=== PATIENT | female | born 1950 | race Caucasian/White ===

== ENCOUNTER → 2016-12-18 | Outpatient (CLI) | payer BC ==
[~2016-12-18] MED LIST: ACET-1256 PO; ASPI81TA28 PO; CALC12502 PO; CLON0.5T3 PO; FEXO1TAB58 PO; FLUO20CA35 PO; IBUP-1050 PO; MULT1TAB32 PO; OMEP-105 PO; SALI0.6517 NAE
[2016-12-18 15:24] LABS: BLOOD UREA NITROGEN 15 mg/dl (7-18); BUN/CREATININE RATIO 16.4 (10-20); CALCIUM 9.3 mg/dl (8.5-10.1); CARBON DIOXIDE 28 mmol/L (21-32); CHLORIDE 105 mmol/L (98-107); CHOLESTEROL 199 mg/dl (0-200); CREATININE 0.92 mg/dl (0.60-1.20); GLUCOSE 92 mg/dl (70-99); POTASSIUM 3.6 mmol/L (3.5-5.1); SODIUM 143 mmol/L (136-145); TRIGLYCERIDES 166 mg/dl (0-150); VERY LOW DENSITY LIPOPROT CALC 33 mg/dl
[2016-12-18 15:27] LABS: CHOLESTEROL/HDL RATIO 4.1; HDL CHOLESTEROL 49 mg/dl
== END | disposition home or self-care (01) ==
LOC: C.LABSPEC 14:43
PROVIDERS: ATTEND Internal Medicine
DX: E78.5 Hyperlipidemia, unspecified (principal); I10 Essential (primary) hypertension

== ENCOUNTER → 2017-05-26 | Outpatient (CLI) | payer BC ==
--- NOTE | 2017-05-27 16:00 | MAMMOGRAPHY REPORT ---
BILATERAL DIGITAL SCREENING MAMMOGRAM WITH CAD: 05/26/2017 CLINICAL HISTORY: Routine screening. Patient has no complaints. TECHNIQUE: Bilateral CC and MLO views were obtained. Current study was also evaluated with a Compute r Aided Detection (CAD) system. COMPARISON: Comparison is made to exams dated: 05/23/2016 mammogram, 05/21/2015 mammogram, 05/19/2014 m ammogram, 05/18/2013 mammogram, 05/17/2012 mammogram, and 05/14/2011 mammogram - [facility] enter. BREAST COMPOSITION: There are scattered areas of fibroglandular density in both breasts. Mild invol utional changes comparing to more remote prior mammograms. FINDINGS: No developing mass, architectural distortion or cluster of suspicious microcalcifications is seen in either breast. IMPRESSION: ACR BI-RADS CATEGORY 2: BENIGN There is no mammographic evidence of malignancy. A 1 year screening mammogram is recommended. The pa tient will receive written notification of the results. Approximately 10% of breast cancers are not detected with mammography. A negative mammographic report should not delay biopsy if a clinically suggestive mass is present. Zeina Tenorio M.D. ay/:05/26/2017 16:01:55 Test Equipment Mechanic: Norah TAN(R)(Pamela)(BD), [facility] letter sent: Normal 1/2 BI-RADS Code: ACR BI-RADS Category 2: Benign
== END | disposition home or self-care (01) ==
LOC: C.MAMM 12:41
PROVIDERS: ATTEND Internal Medicine
DX: Z12.31 Encounter for screening mammogram for malignant neoplasm of breast (principal)

== ENCOUNTER → 2017-06-23 | Outpatient (CLI) | payer BC | END | disposition home or self-care (01) | LOC: C.PAPS 13:23 | PROVIDERS: ATTEND Internal Medicine | DX: Z12.4 Encounter for screening for malignant neoplasm of cervix (principal) ==

== ENCOUNTER → 2017-06-23 | Outpatient (CLI) | payer BC ==
[2017-06-23 13:16] LABS: BASO % 0.4 %; BASO ABS # 0.02 K/uL (0-0.2); COMPLETE YES; EOS % 2.2 %; LYMPH % 32.5 %; LYMPH ABS # 1.45 K/uL (1.2-3.4); MEAN CELL VOLUME 90.7 fL (80-100); MEAN CORPUSCULAR HEMOGLOBIN 30.4 pg (25-34); MEAN CORPUSCULAR HGB CONC 33.5 g/dl (32-36); MEAN PLATELET VOLUME 9.4 fL (7.4-10.4); MONO % 7.6 %; NEUT % 57.3 %; PLATELET COUNT 316 K/uL (130-400); RED BLOOD COUNT 4.41 M/uL (4.2-5.4); WHITE BLOOD COUNT 4.46 K/uL (4.8-10.8)
[2017-06-23 13:33] LABS: ALT/SGPT 33 U/L (12-78); AST/SGOT 21 U/L (15-37); BLOOD UREA NITROGEN 17 mg/dl (7-18); BUN/CREATININE RATIO 17.8 (10-20); CALCIUM 9.6 mg/dl (8.5-10.1); CARBON DIOXIDE 29 mmol/L (21-32); CHLORIDE 104 mmol/L (98-107); CHOLESTEROL 206 mg/dl (0-200); CREATININE 0.93 mg/dl (0.60-1.20); GLUCOSE 86 mg/dl (70-99); SODIUM 140 mmol/L (136-145)
[2017-06-23 13:44] LABS: ALKALINE PHOSPHATASE 86 U/L (45-117); CHOLESTEROL/HDL RATIO 4.2; HDL CHOLESTEROL 49 mg/dl; TRIGLYCERIDES 163 mg/dl (0-150); VERY LOW DENSITY LIPOPROT CALC 33 mg/dl
== END | disposition home or self-care (01) ==
LOC: C.LABSPEC 12:08
PROVIDERS: ATTEND Internal Medicine
DX: Z12.4 Encounter for screening for malignant neoplasm of cervix (principal); Z11.59 Encounter for screening for other viral diseases

== ENCOUNTER → 2017-06-26 | Outpatient (CLI) | payer BC | END | disposition home or self-care (01) | LOC: C.LABSPEC 14:24 | PROVIDERS: ATTEND Internal Medicine | DX: Z12.11 Encounter for screening for malignant neoplasm of colon (principal) ==

== ENCOUNTER → 2017-09-23 | Outpatient (CLI) | payer BC ==
--- NOTE | 2017-09-23 11:31 | DIAGNOSTIC IMAGING REPORT ---
RIGHT KNEE 2 VIEWS CLINICAL HISTORY: Right knee pain COMPARISON: 11/28/2015 DISCUSSION: No acute fractures or dislocations are visualized. There are mild osteoarthritic changes. There are no erosive or destructive changes. IMPRESSION: Mild degenerative change. No fractures identified. Electronically signed by: Mark Barrera M.D. 09/23/2017 11:30 AM Dictated Date/Time: 09/23/2017 11:29 AM
--- NOTE | 2017-09-23 11:33 | DIAGNOSTIC IMAGING REPORT ---
L KNEE 1 OR 2 VIEWS ROUTINE CLINICAL HISTORY: Bilateral knee pain. COMPARISON: Left knee radiographs October 14, 2013. FINDINGS: Alignment of the left knee is anatomic. No fracture or suspicious osseous lesion is present. There is a suspected small left knee joint effusion. There is mild osteophytosis within the medial compartment. IMPRESSION: 1. No acute fracture. 2. Mild osteoarthritis within the medial compartment of the left knee. 2. Small left knee joint effusion. Electronically signed by: Michael Slater M.D. 09/23/2017 11:31 AM Dictated Date/Time: 09/23/2017 11:30 AM
== END | disposition home or self-care (01) ==
LOC: C.RAD 10:38
PROVIDERS: ATTEND Internal Medicine
DX: M25.562 Pain in left knee (principal); M25.561 Pain in right knee; M25.462 Effusion, left knee

== ENCOUNTER → 2017-12-22 | Outpatient (CLI) | payer BC ==
[2017-12-22 14:18] LABS: BLOOD UREA NITROGEN 18 mg/dl (7-18); CREATININE 0.97 mg/dl (0.60-1.20); GLUCOSE 88 mg/dl (70-99)
[2017-12-22 14:19] LABS: CALCIUM 9.2 mg/dl (8.5-10.1); CARBON DIOXIDE 28 mmol/L (21-32); CHOLESTEROL 202 mg/dl (0-200); POTASSIUM 3.9 mmol/L (3.5-5.1); SODIUM 139 mmol/L (136-145)
[2017-12-22 14:24] LABS: LDL CHOLESTEROL (DIRECT) 136 mg/dl
== END | disposition home or self-care (01) ==
LOC: C.LABSPEC 12:34
PROVIDERS: ATTEND Internal Medicine
DX: I10 Essential (primary) hypertension (principal); E78.5 Hyperlipidemia, unspecified

== ENCOUNTER → 2018-05-27 | Outpatient (CLI) | payer BC ==
[~2018-05-27] MED LIST changes: -CLON0.5T3 PO; +KLN/5 PO; -OMEP-105 PO; +OMEP-107 PO
--- NOTE | 2018-05-28 14:30 | MAMMOGRAPHY REPORT ---
BILATERAL DIGITAL SCREENING MAMMOGRAM TOMOSYNTHESIS WITH CAD: 05/27/2018 CLINICAL HISTORY: Routine screening. TECHNIQUE: Breast tomosynthesis in addition to standard 2D mammography was performed. Current study w as also evaluated with a Computer Aided Detection (CAD) system. COMPARISON: Comparison is made to exams dated: 05/26/2017 mammogram, 05/23/2016 mammogram, 05/21/2015 m ammogram, 05/19/2014 mammogram, 05/18/2013 mammogram, and 05/17/2012 mammogram - [facility] enter. BREAST COMPOSITION: There are scattered areas of fibroglandular density in both breasts. FINDINGS: No suspicious masses, calcifications, or areas of architectural distortion are noted in either breast . There has been no significant interval change compared to prior exams. IMPRESSION: ACR BI-RADS CATEGORY 1: NEGATIVE There is no mammographic evidence of malignancy. A 1 year screening mammogram is recommended.( 019) The patient will receive written notification of the results. Some breast cancers are not detected with mammography. A negative mammographic report should not nisha y biopsy if a clinically suggestive mass is present. Bita Jones M.D. ah/:05/27/2018 15:14:48 Playback Operator: RT Aleyda(R)(M), [facility] letter sent: Normal 1/2 BI-RADS Code: ACR BI-RADS Category 1: Negative
== END | disposition home or self-care (01) ==
LOC: C.MAMM 11:04
PROVIDERS: ATTEND Internal Medicine
DX: Z12.31 Encounter for screening mammogram for malignant neoplasm of breast (principal)

== ENCOUNTER 2023-08-31 05:02 | Observation (INO) ==
--- NOTE | 2023-08-20 12:34 | PAT Medication Instructions ---
Medication Instructions Date of Service August 20, 2023 Home Medications Medication Instructions Recorded amlodipine 5 mg tablet 5 mg PO QAM #90 tabs 08/13/22 metoprolol tartrate 25 mg tablet 12.5 mg (1/2 x 25 mg) PO BID #90 04/09/23 tabs clonazepam 0.5 mg tablet 0.5 mg PO HS #30 tabs 08/12/23 3-in-1 Commode #1 ea 08/20/23 Wheeled Walker #1 ea 08/20/23 cholecalciferol (vitamin D3) 25 mcg (1,000 unit) capsule 25 mcg PO QAM ivermectin 1 % topical cream (Soolantra) 1 applic topical QAM amlodipine 5 mg tablet 5 mg PO QAM fexofenadine 180 mg tablet (Dulce Allergy) 180 mg PO HS allergy symptoms acetaminophen 325 mg tablet (Tylenol) 650 mg PO QID PRN Pain simethicone 80 mg chewable tablet 80 mg PO BID PRN GAS ascorbate calcium (vitamin C) 500 mg tablet 500 mg PO QDL atorvastatin 10 mg tablet 10 mg PO QAM fluoxetine 40 mg capsule 40 mg PO QAM hydrochlorothiazide 25 mg tablet 25 mg PO QAM pantoprazole 20 mg tablet,delayed release 20 mg PO QAM phenyleph-shark liver flu-zkrsek-huq rectal cream 1 applic PA DAILY PRN Pain metoprolol tartrate 25 mg tablet 12.5 mg (1/2 x 25 mg) PO BID buspirone 5 mg tablet 5 mg PO TID PRN Anxiety ferrous sulfate 325 mg (65 mg iron) tablet (iron) 325 mg PO QDL clonazepam 0.5 mg tablet 0.5 mg PO HS glucosamine 750 wg-oonjeeebrdd-qel no1 644 mg-C 30 mg-joe 1 mg tablet (Osteo Bi-Flex Triple Strength) 1 tab PO QDL hydrocodone 5 mg-acetaminophen 325 mg tablet 1 tab PO BID pain sihbbqsrylqd-bvojoard-tsdhany-folic acid 400 mcg-vit K1 20 mcg tablet (One-A-Day Women's 50 Plus) 1 tab PO QDL nystatin 100,000 unit/gram topical powder 1 applic topical BID PRN Rash triamcinolone acetonide 0.1 % topical ointment 1 applic topical BID PRN Rash STOP taking 2 weeks before surgery glucosamine 750 dj-rnalwrezibd-ebh no1 644 mg-C 30 mg-joe 1 mg tablet (Osteo Bi-Flex Triple Strength) 1 tab PO QDL STOP taking 24 hours before surgery nystatin 100,000 unit/gram topical powder 1 applic topical BID PRN Rash triamcinolone acetonide 0.1 % topical ointment 1 applic topical BID PRN Rash phenyleph-shark liver epw-xbowxo-ygh rectal cream 1 applic PA DAILY PRN Pain ivermectin 1 % topical cream (Soolantra) 1 applic topical QAM DO NOT take the morning of surgery cholecalciferol (vitamin D3) 25 mcg (1,000 unit) capsule 25 mcg PO QAM simethicone 80 mg chewable tablet 80 mg PO BID PRN GAS ascorbate calcium (vitamin C) 500 mg tablet 500 mg PO QDL hydrochlorothiazide 25 mg tablet 25 mg PO QAM ferrous sulfate 325 mg (65 mg iron) tablet (iron) 325 mg PO QDL ceorcnbwrebo-whyyeszh-ouaycbl-folic acid 400 mcg-vit K1 20 mcg tablet (One-A-Day Women's 50 Plus) 1 tab PO QDL Take morning of surgery With a small sip of water, OTHERWISE NOTHING TO EAT OR DRINK AFTER MIDNIGHT: amlodipine 5 mg tablet 5 mg PO QAM acetaminophen 325 mg tablet (Tylenol) 650 mg PO QID PRN Pain(if needed) atorvastatin 10 mg tablet 10 mg PO QAM fluoxetine 40 mg capsule 40 mg PO QAM pantoprazole 20 mg tablet,delayed release 20 mg PO QAM metoprolol tartrate 25 mg tablet 12.5 mg (1/2 x 25 mg) PO BID buspirone 5 mg tablet 5 mg PO TID PRN Anxiety (if needed) hydrocodone 5 mg-acetaminophen 325 mg tablet 1 tab PO BID pain (if needed) Take evening before surgery fexofenadine 180 mg tablet (Dulce Allergy) 180 mg PO HS allergy symptoms (if needed) acetaminophen 325 mg tablet (Tylenol) 650 mg PO QID PRN Pain (if needed) simethicone 80 mg chewable tablet 80 mg PO BID PRN GAS (if needed) metoprolol tartrate 25 mg tablet 12.5 mg (1/2 x 25 mg) PO BID buspirone 5 mg tablet 5 mg PO TID PRN Anxiety (if needed) clonazepam 0.5 mg tablet 0.5 mg PO HS hydrocodone 5 mg-acetaminophen 325 mg tablet 1 tab PO BID pain (if needed) Other Notes If you have any questions please call us at [phone] or [phone] or [phone] or [phone]
--- NOTE | 2023-08-24 14:41 | Anesthesiology Consultation ---
Date of Service August 24, 2023 Assessment & Plan (1) Encounter for pre-operative examination: Chart Review Chart Review: Acceptable Risk for Surgery and Patient seen in Pre Admission Testing - Patient is not an ideal OPJ candidate Per PAT appt on 08/24/23, no recent illness/disease exposures, illness related symptoms, or recent illness/disease positive tests. Will leave to surgeon's discretion if preop Covid testing needed Teaching & Discussion Pre-Anesthesia Teaching/Discussion Notes: Instructed NPO after midnight before surgery,except medications with 15 cc of water. Medication instructions provided according to the [facility] guidelines. History Surgery Operation Date: 08/31/23 10:40 Proposed Procedures p Right Total Hip Arthroplasty - Trace Fair MD Height/Weight Height: 5 ft 1.5 in Weight: 78.2 kg Allergies Allergy/AdvReac Type Severity Reaction Status Date / Time No Known Drug Allergies Allergy Unknown Verified 08/20/23 11:24 adhesive AdvReac Mild redness Verified 08/20/23 11:24 Medications Home Medications Medication Instructions Recorded Confirmed Last Taken cholecalciferol (vitamin D3) 25 25 mcg PO QAM 06/12/22 08/20/23 03/30/23 mcg (1,000 unit) capsule ivermectin 1 % topical cream 1 applic topical QAM 08/12/22 08/20/23 03/30/23 (Soolantra) amlodipine 5 mg tablet 5 mg PO QAM #90 tabs 08/13/22 08/20/23 03/31/23 09:00 fexofenadine 180 mg tablet 180 mg PO HS allergy symptoms 10/17/22 08/20/23 03/30/23 (Dulce Allergy) acetaminophen 325 mg tablet 650 mg PO QID PRN Pain 01/08/23 08/20/23 03/30/23 (Tylenol) 0300 simethicone 80 mg chewable tablet 80 mg PO BID PRN GAS 01/08/23 08/20/23 03/29/23 ascorbate calcium (vitamin C) 500 500 mg PO QDL 03/24/23 08/20/23 03/29/23 mg tablet atorvastatin 10 mg tablet 10 mg PO QAM 03/24/23 08/20/23 03/30/23 fluoxetine 40 mg capsule 40 mg PO QAM 03/24/23 08/20/23 03/31/23 hydrochlorothiazide 25 mg tablet 25 mg PO QAM 03/24/23 08/20/23 03/30/23 pantoprazole 20 mg tablet,delayed 20 mg PO QAM 03/24/23 08/20/23 03/31/23 release phenyleph-shark liver 1 applic ND DAILY PRN Pain 03/24/23 08/20/23 Unknown wbx-bdfack-qzf rectal cream buspirone 5 mg tablet 5 mg PO TID PRN Anxiety 05/21/23 08/20/23 Unknown ferrous sulfate 325 mg (65 mg 325 mg PO QDL 05/21/23 08/20/23 Unknown iron) tablet (iron) clonazepam 0.5 mg tablet 0.5 mg PO HS #30 tabs 08/12/23 08/20/23 Unknown 3-in-1 Commode #1 ea 08/20/23 08/20/23 Unknown Wheeled Walker #1 ea 08/20/23 08/20/23 Unknown glucosamine 750 jm-frftiwiumlz-pqp 1 tab PO QDL 08/20/23 08/20/23 Unknown no1 644 mg-C 30 mg-joe 1 mg tablet (Osteo Bi-Flex Triple Strength) hydrocodone 5 mg-acetaminophen 325 1 tab PO BID pain 08/20/23 08/20/23 Unknown mg tablet wrszyteqqxxu-udgpakso-bfwfqpx-folic 1 tab PO QDL 08/20/23 08/20/23 Unknown acid 400 mcg-vit K1 20 mcg tablet (One-A-Day Women's 50 Plus) nystatin 100,000 unit/gram topical 1 applic topical BID PRN Rash 08/20/23 08/20/23 Unknown powder triamcinolone acetonide 0.1 % 1 applic topical BID PRN Rash 08/20/23 08/20/23 Unknown topical ointment metoprolol tartrate 50 mg tablet 12.5 mg PO BID 08/25/23 08/25/23 Unknown Past Medical History Medical History Chronic sinusitis of both maxillary sinuses Stable History of anesthesia reaction felt like was suffocating during oral surgery at beginning when starting anesthesia Numbness in toes both feet at times - chronic - PCP aware (patient feels due to arthritis) Hyperlipidemia Obesity (BMI 30.0-34.9) Restless legs syndrome GERD (gastroesophageal reflux disease) Well controlled and stable History of COVID-19 Spring 2021 (January or February 2022). fatigue. cough. mild cold symptoms. no current problems Hypertension Depression with anxiety Exercise / Class Metabolic Activity II 4-5 Yardwork/Stairs/Walk up hill (one flight of stairs - no chest pain or SOB ) Past Family History Family History Mother Hypertension Father Lung cancer Grandmother (Maternal) Myocardial infarction Grandfather (Maternal) Myocardial infarction Dementia Other No family history of adverse response to anesthesia No family history of allergies No family history of bleeding disorder Denies family history of Ovarian cancer Prostate cancer Hearing loss Heart disease Breast cancer Colorectal cancer Cancer Stroke Asthma Past Surgical History Surgical History History of esophagogastroduodenoscopy (EGD) Hx of oral surgery (01/13/23) Excision Bony Mass of Palate, Placement of Surgical Splint(Not Applicable) - Anurag Armijo, DMD S/P blepharoplasty bilat History of colonoscopy History of bilateral cataract extraction Past Anesthesia History No Hx of Anesthesia Complications (with exception to remote history of SOB during start of anesthesia with oral surgery ) and No Family Hx of Anesthesia Complications History of PONV No Hx of PONV and No Hx of Motion Sickness Social History Smoking Status: Never smoker Do You Dip or Chew Tobacco: No Hx Alcohol Use: No Hx Substance Use: No substance use type: does not use Review of Systems - Occ chronic cough- stable (feels due to allergies) - Possible apnea in the past (no recent issues) - no hx of sleep study Patient denies chest pain, shortness of breath, dyspnea on exertion, wheezing, palpitations. No hx of seizures, stroke, SD. No hx of blood clots or blood transfusions Physical Exam Vital Signs VITALS BP 119/70 P 70 TEMP 98.1 SP02 94% RESP 16 Constitutional no acute distress ENMT Mouth: no TMJ clicking Thyromental Distance: > or= 3.5 Finger Breadths (3.5) Mallampati Class: I Missing molars Caps to side teeth and molars Neck + thick neck; neck extension not limited Respiratory normal respiratory effort; no respiratory distress Auscultation: lungs clear to auscultation bilaterally; no wheezes Cardiovascular Rate/Rhythm: regular rate and regular rhythm Heart Sounds: no murmur Vessels: no carotid bruit Musculoskeletal Spine: no pain with cervical ROM Extremities: extremities normal to inspection Psychiatric Orientation: alert Lab Results Anesthesia Preop Results Results Anesthesia Widget: WBC 8.61 K/ul (4.8-10.8) 08/24/23 Hgb 13.2 g/dl (12.0-16.0) 08/24/23 Hct 38.5 % (37.0-47.0) 08/24/23 Plt 381 K/uL (130-400) 08/24/23 Na 140 mmol/L (136-145) 08/12/23 K 3.4 mmol/L (3.5-5.1) L 08/12/23 Cl 101 mmol/L (98-107) 08/12/23 CO2 31 mmol/L (21-32) 08/12/23 BUN 25 mg/dl (6-23) H 08/12/23 Creat 0.95 mg/dl (0.6-1.2) 08/12/23 Glucose Level 94 mg/dl (70-99(Fasting)) 08/12/23 PT 10.5 Seconds (9.0-12.0) 08/24/23 PTT 28.0 Seconds (21.0-31.0) 08/24/23 INR 1.0 (0.9-1.1) 08/24/23 Blood Type O Positive 08/24/23 Antibody Screen NEGATIVE 08/24/23 Testing Electrocardiogram Date: 08/24/23 Findings: + NSR @ (70bpm ) Normal EKG per cardio Chest X-Ray Date: 08/25/23 Findings: + NAD
[2023-08-31] MEDS: ACETAMINOPHEN 500 MG TAB PO SCH ×4 (05:45→22:10)
[2023-08-31] MEDS ORDERED: CeleBREX 200 MG CAP PO SCH (06:00)
[2023-08-31] MEDS ORDERED: METOCLOPRAMIDE HCL 10 MG TABLET PO SCH (06:00)
[2023-08-31] MEDS ORDERED: ceFAZolin 2000MG 2,000 MG/15 ML SYR IV SCH (06:00)
[2023-08-31] MEDS ORDERED: LR 60ML/HR IV SCH (06:00)
[2023-08-31] MEDS ORDERED: dexAMETHasone**PF** 10 MG/ML VIAL IV SCH (06:00)
[2023-08-31] MEDS ORDERED: FAMOTIDINE 20 MG TAB PO SCH (06:00)
[2023-08-31] MEDS ORDERED: LR 500ML BOLUS, THEN 15ML/HR IV SCH (06:00)
[2023-08-31] MEDS ORDERED: BUPIVACAINE 0.5 % 5 MG/1 ML PF 10ML VIAL ONE (06:20)
[2023-08-31] MEDS ORDERED: MIDAZOLAM HCL 1 MG/ML 2ML VIAL ONE (06:24)
[2023-08-31] MEDS ORDERED: fentaNYL citrate PF 100 MCG/2 ML VIAL ONE (06:24)
[2023-08-31] MEDS ORDERED: PROPOFOL IV EMULSION 10 MG/ML 20 ML VIAL IV ONE ×3 (06:26)
[2023-08-31] MEDS ORDERED: BUPIVACAINE/EPINEPHRINE 0.5% MPF 1:200,000 30 ML VIAL ONE (06:31)
[2023-08-31] MEDS ORDERED: ONDANSETRON INJ 2 MG/ML 2 ML VIAL IV PRN ×2 (06:48→13:51)
[2023-08-31] MEDS ORDERED: fentaNYL citrate PF 100 MCG/2 ML VIAL IV PRN (06:48)
[2023-08-31] MEDS ORDERED: ePHEDrine sulfate 50 MG/ML AMP IV PRN (06:48)
[2023-08-31] MEDS ORDERED: ATROPINE SULFATE 0.1 MG/ML 10ML SYR IV PRN (06:48)
--- NOTE | 2023-08-31 06:53 | History & Physical Bridge Note ---
Date of Service August 31, 2023 History & Physical Bridge Note I have examined the patient, reviewed the History & Physical and in the interval since the performance of the History & Physical I have noted the following changes of clinical significance: no changes noted
[2023-08-31] MEDS: TRANEXAMIC ACID 1,000 MG **IV Pre-op IV SCH ×2 (06:54→15:09)
[2023-08-31] MEDS ORDERED: DEXAMETHASONE SOD INJ 4 MG/ML VIAL ONE (07:21)
[2023-08-31] MEDS ORDERED: ONDANSETRON INJ 2 MG/ML 2 ML VIAL ONE (07:21)
--- NOTE | 2023-08-31 08:46 | Operative Report ---
PG Post Operative Report Pre & Post Diagnosis Operation Date: 08/31/23 07:00 Pre-Op Diagnosis: Osteoarthritis of Right Hip Post-Op Diagnosis: Osteoarthritis of Right Hip I identified the patient and participated in the time-out.: Yes Procedure Operation Date: 08/31/23 07:00 Actual Procedures p Right Total Hip Arthroplasty(Right) - Trace Fair MD Surgeon Trace Fair MD Hotel Housekeeper Thank ALVIN Rodriges Estimated Blood Loss 200 Findings Consistent with Post-Op Diagnosis Operative findings revealed advanced right hip arthritis. As she clearly had a subchondral fracture of the femoral head with delamination of the femoral head cartilage. Moderate-sized joint effusion. Specimens Right femoral head sent for pathology Anesthesia Type Spinal MAC Complications none Disposition Accompanied Patient To Recovery: No Indications Patient is a 73-year-old female who presents with a 6-month history of markedly progressive hip pain and discomfort. She failed conservative measures. X-rays show progressive hip arthritis. MRI showed showed a subchondral fracture with significant marrow edema. Patient was markedly debilitated and failed conservative care. She was elected for total hip arthroplasty. Description of Procedure Operative implants consist of: 1. Biomet G7 size 48 mm acetabular shell. 2. 6.5 cancellous acetabular screws 1 at 35 mm in length and 1 to 20 mm length. 3. Carson hole eliminator. 4. Highly cross-linked polyethylene liner with a 48 mm outer diameter and a 32 mm inner diameter. 5. DePuy Karaya I size 10 short neck 125 degree angle femoral stem. 6. +1/32 mm ceramic articular ball. The patient was taken the operating, identified, and placed on the operating table in the supine position. All contact areas were appropriately padded. IV antibiotics tried by anesthesia team. A spinal anesthetic and been implemented in the holding area. A Rivers catheter was placed in a sterile fashion. Patient was then placed in the left lateral decubitus position. An axillary roll was placed. A Stulberg hip positioner was used for positioning. Right hip and leg were then prepped and draped in usual sterile fashion. A posterolateral approach to the right hip was then performed to a curvilinear incision centered over the greater trochanter. Sharp dissection was carried through subcutaneous tissue down to the IT band gluteal fascia the IT band gluteal fascia incised longitudinally in line with skin incision. The underlying greater bursa was excised. She did have quite a bit of bursitis. The piriformis and external rotators along with the posterior hip joint capsule were then released from the posterior aspect hip as a single layer. Great care was taken throughout the procedure protect the sciatic nerve at all times. The hip was internally rotated and dislocated. A femoral neck osteotomy cut was made with Final Cut approximately 5 mm above the lesser trochanter. Femoral head was removed and sent for pathology. There was significant delamination fracture of the femoral head and subchondral bone. The pulmonary fat was excised. The labrum was excised. The femur was then retracted anteriorly and attention was then drawn to the acetabulum. Acetabular labrum was excised. The pulmonary fat was excised. Sequential reaming the acetabular was then performed beginning with a size 43 and progressing up to 47. I reamed a little bit with a 48 reamer and then placed a 48 mm Biomet G7 acetabular shell in about 40 degrees lateral opening and 20 to 25 degrees of anteversion. It was fixed with two 6.5 cancellous screws. Trial liner was placed. Attention drawn the femur. The proximal femur then with a [employer] cutter followed by canal finder. I then broached beginning with a size 8 and progressing to a 9. Got pretty good fit with a 9. I trialed the hip and the standard neck seemed to to tighten a little bit too long. Therefore we elect to use a short neck. It was fully stable. He was fully stable in full extension and external rotation and flexion to 90 degrees internal Tatian over 50 degrees. The leg lengths seemed appropriate. We did dislocate this and there is still little bit of rotational motion in the femoral component. Therefore I remove the 9 and impacted the 10. I sequentially packed this as it was a quite tight distally. We took our time and I was able to get it pretty much straight down to the calcar maybe a millimeter short. We elect to place this implant. All trial implants were removed. Carson payroll examiner was placed but highly cross- linked polyethylene liner was placed. A 10 KLA short neck on 25 degree angle femoral stem was then impacted in position. However, I could not get this down to the calcar. About 5 mm short of the calcar it would not advance further. We elected to not impact this any further for fear of fracturing her femur. I also cannot remove this easily to ream any further. Therefore we elect to place a smaller neck. We placed a +1/32 mm ceramic articular ball. Hip was located once again found to be stable. The femoral component was completely stable. Attention drawn toward closing. Wounds irrigated coconuts pulsatile lavage solution. I injected locally with 60 cc of half percent Marcaine with epinephrine. Posterior capsule and external rotators were repaired through drill holes in the posterior trochanter with #2 Tycron suture as a single layer. The IT band gluteal fascia then closed in 1 PDS suture in running fashion for subcutaneous tissue then closed in 2 layers the deep layer #1 Vicryl suture and subcutaneous tissues with 2 Dexon suture in a buried interrupted fashion the skin was closed skin earnest. Leg was then cleaned and dried and sterile dressing with Xeroform, 4 fours, sterile ABD pad and foam tape was applied. Patient then transferred to the recovery room in stable condition. Patient tolerated the procedure well and there were no complications. Jc Rodriges, my physician operations assistant, was present for the entire procedure. His assistance was essential and required for appropriate patient positioning, prepping and draping, surgical exposure, performing the technical details of the operation, placement the implants, closure of the wound, and placement of the sterile bandage. I attest to the content of the Intraoperative Record and any orders documented therein. Any exceptions are noted below.
--- NOTE | 2023-08-31 09:14 | XRay Report ---
XR hip 1V RT w pelvis HISTORY: 73 years-old Female IN PACU - Post Surgical right hip arthroplasty COMPARISON: 08/20/2023 TECHNIQUE: AP view of the pelvis with crosstable lateral view of the right hip FINDINGS: Moderate left hip osteoarthritis. Satisfactory alignment of the right hip arthroplasty with overlying skin earnest, expected postoperative soft tissue swelling with deep tissue air. IMPRESSION: Right hip arthroplasty with expected postoperative changes. ACT 112: Negative or not required by law. The above report was generated using voice recognition software. It may contain grammatical, syntax o r spelling errors. Electronically signed by: Suhail Odell M.D. 08/31/2023 9:13 AM
--- NOTE | 2023-08-31 09:51 | Anesthesiology Progress Note ---
Date of Service August 31, 2023 Anesthesia Post Procedure Vital Signs Vital Signs: Temp Pulse Pulse Resp BP Pulse Ox O2 Del Method 08/31/23 09:45 81 16 126/54 L 95 Room Air 08/31/23 09:30 79 21 112/50 L 95 Room Air 08/31/23 09:15 79 15 118/51 L 96 Room Air 08/31/23 09:10 75 20 119/49 L 95 Room Air 08/31/23 08:55 80 17 107/67 100 Oxymask 08/31/23 08:45 78 20 120/55 L 100 Oxymask 08/31/23 08:35 80 16 123/51 L 100 Oxymask 08/31/23 08:29 36.4 C L 84 12 120/51 L 100 Oxymask 08/31/23 06:05 36.6 C 77 20 146/77 H 94 Room Air O2 Flow Rate 08/31/23 09:45 08/31/23 09:30 08/31/23 09:15 08/31/23 09:10 08/31/23 08:55 3 08/31/23 08:45 5 08/31/23 08:35 5 08/31/23 08:29 7 08/31/23 06:05 Notes Mental Status: alert / awake / arousable Patient Amnestic to Procedure: Yes Nausea / Vomiting: adequately controlled Pain: adequately controlled Airway Patency, RR, SpO2: stable & adequate BP & HR: stable & adequate Hydration State: stable & adequate Neuraxial Anesthesia: was administered and sensory block is resolving Anesthetic Complications: no major complications apparent
[2023-08-31] MEDS ORDERED: NALOXONE HCL 0.4 MG/1 ML VIAL/CARP IV PRN (13:51)
[2023-08-31] MEDS ORDERED: HYDROmorphone INJ 0.5 MG/0.5 ML SYR IV PRN (13:51)
[2023-08-31] MEDS ORDERED: SIMETHICONE 80 MG CHEW PO PRN (13:51)
[2023-08-31] MEDS ORDERED: GLYCERIN PR PRN (13:51)
[2023-08-31] MEDS ORDERED: PETROLATUM PR PRN (13:51)
[2023-08-31] MEDS ORDERED: METOCLOPRAMIDE HCL INJ 5 MG/ML 2 ML VIAL IV PRN (13:51)
[2023-08-31] MEDS ORDERED: ALUMINUM/MAGNESIUM SUSP 30 ML UDC PO PRN (13:51)
[2023-08-31] MEDS ORDERED: PHENYLEPHRINE PR PRN (13:51)
[2023-08-31] MEDS ORDERED: NON-FORMULARY MEDICATION (Glucosam-Chon-Msm1-C-Mang-Bosw [Osteo Bi-Flex Triple Strength] 7 PO SCH (13:51)
[2023-08-31] MEDS ORDERED: traMADol HCL 50 MG TABLET PO PRN (13:51)
[2023-08-31] MEDS ORDERED: busPIRone 5 MG TAB PO PRN (13:51)
[2023-08-31] MEDS ORDERED: MAGNESIUM HYDROXIDE SUSP 30 ML UDC PO PRN (13:51)
[2023-08-31] MEDS ORDERED: bisacodyL 10 MG SUPP PR PRN (13:51)
[2023-08-31] MEDS ORDERED: SHARK LIVER OIL PR PRN (13:51)
[2023-08-31] MEDS ORDERED: TRIAMCINOLONE ACET 0.1% OINT 15 GM TUBE TOP PRN (13:51)
[2023-08-31] MEDS ORDERED: ASCORBIC ACID 500 MG TAB PO SCH (14:30)
[2023-08-31] MEDS ORDERED: FERROUS SULFATE 325 MG TAB PO SCH (14:30)
[2023-08-31] MEDS ORDERED: TRANEXAMIC ACID / 0.7% NACL 1,000 MG/100 ML BAG IV SCH (14:45)
[2023-08-31] MEDS: ASPIRIN 81 MG ECTAB PO SCH ×2 (14:50→20:23)
[2023-08-31] MEDS: CHOLECALCIFEROL 1,000 UNITS 25 MCG TAB PO SCH (14:51)
[2023-08-31] MEDS: ATORVASTATIN 10 MG TAB PO SCH (14:51)
[2023-08-31] MEDS: SENNA 8.6 MG TAB PO SCH ×2 (14:52→20:22)
[2023-08-31] MEDS: hydroCHLOROthiazide 25 MG TAB PO SCH (14:53)
[2023-08-31] MEDS: SODIUM CHLORIDE 0.9% 1,000 ML IV SCH (16:45)
[2023-08-31] MEDS: FLUoxetine HCL 20 MG CAP PO SCH (17:21)
[2023-08-31] MEDS: amLODIPine BESYLATE 5 MG TAB PO SCH (17:23)
[2023-08-31] MEDS: METOPROLOL TARTRATE 25 MG TAB PO SCH ×2 (17:23→20:21)
[2023-08-31] MEDS: MULTIVITAMIN TAB PO SCH (17:24)
[2023-08-31] MEDS: PANTOprazole 40 MG TAB PO SCH (17:24)
[2023-08-31] MEDS: ceFAZolin 1000MG 1,000 MG/7.5 ML SYR IV SCH ×2 (17:26→22:11)
[2023-08-31] MEDS: KETOROLAC TROMETHAMINE 15 MG/ML VIAL IV SCH ×2 (17:26→20:22)
[2023-08-31] MEDS: DOCUSATE SODIUM 100 MG CAP PO SCH ×2 (17:26→20:20)
[2023-08-31] MEDS ORDERED: clonazePAM 0.5 MG TAB PO SCH (21:00)
[2023-08-31] MEDS ORDERED: FEXOFENADINE HCL 180 MG TAB PO SCH (21:00)
[2023-08-31] MEDS ORDERED: SENNA 8.6 MG TAB PO SCH (21:00)
[2023-09-01] MEDS: KETOROLAC TROMETHAMINE 15 MG/ML VIAL IV SCH ×2 (02:26→08:12)
[2023-09-01] MEDS: SODIUM CHLORIDE 0.9% 1,000 ML IV SCH (02:33)
[2023-09-01] MEDS: ACETAMINOPHEN 500 MG TAB PO SCH (05:35)
[2023-09-01 07:36] LABS: Basophils # (auto) 0.01 K/uL (0.00-0.20); Basophils % (auto) 0.1 %; Hematocrit (blood only) 30.8 % (37.0-47.0); Hemoglobin 10.6 g/dl (12.0-16.0); Immature Granulocytes % (auto) 0.6 %; Lymphocytes # (auto) 0.83 K/uL (1.20-3.40); Lymphocytes % (auto) 5.2 %; Mean Corpuscular Hemoglobin 31.8 pg (25.0-34.0); Mean Corpuscular Hgb Conc 34.4 g/dL (32.0-36.0); Mean Corpuscular Volume 92.5 fL (80.0-100.0); Mean Platelet Volume 9.2 fL (9.4-12.4); Monocytes # (auto) 0.87 K/uL (0.11-0.59); Monocytes % (auto) 5.5 %; Neutrophils # (auto) 14.11 K/uL (1.40-6.50); Neutrophils % (auto) 88.6 %; Platelet Count 284 K/uL (130-400); RDW Standard Deviation 44.3 fL (36.4-46.3); Red Blood Count 3.33 M/uL (4.20-5.40); White Blood Count 15.92 K/ul (4.8-10.8)
[2023-09-01] MEDS ORDERED: dexAMETHasone 10 MG in SYRINGE 0 ML IV SCH (08:00)
[2023-09-01 08:03] LABS: BUN Creatinine Ratio 26.2 (10-20); Creatinine Clr Calc Pharmacy 57.1 ml/min; Est GFR (African American) 79.9 ml/min; Potassium 3.9 mmol/L (3.5-5.1)
[2023-09-01] MEDS: ATORVASTATIN 10 MG TAB PO SCH (08:09)
[2023-09-01] MEDS: SENNA 8.6 MG TAB PO SCH (08:09)
[2023-09-01] MEDS: CHOLECALCIFEROL 1,000 UNITS 25 MCG TAB PO SCH (08:09)
[2023-09-01] MEDS: amLODIPine BESYLATE 5 MG TAB PO SCH (08:09)
[2023-09-01] MEDS: METOPROLOL TARTRATE 25 MG TAB PO SCH (08:10)
[2023-09-01] MEDS: hydroCHLOROthiazide 25 MG TAB PO SCH (08:10)
[2023-09-01] MEDS: MULTIVITAMIN TAB PO SCH (08:10)
[2023-09-01] MEDS: PANTOprazole 40 MG TAB PO SCH (08:10)
[2023-09-01] MEDS: ASPIRIN 81 MG ECTAB PO SCH (08:11)
[2023-09-01] MEDS: FLUoxetine HCL 20 MG CAP PO SCH (08:11)
[2023-09-01] MEDS: DOCUSATE SODIUM 100 MG CAP PO SCH (08:11)
--- NOTE | 2023-09-01 09:32 | Surgery Progress Note ---
Date of Service September 01, 2023 Assessment & Plan (1) Status post right hip replacement: Plan: 73-year-old female postop day 1 from right hip replacement doing pretty well. Pain is controlled. Hips located. She is neurologically intact. Plan: 1. DVT prophylaxis including thigh-high teds, SCDs, aspirin twice a day. 2. PT/OT. Weight-bear as tolerated. Right shoulder protocol. Does [place] hip precautions. 3. Pain control doing okay with current pain regimen. 4. Disposition plan to discharge to home with some home health if she does okay in therapy today. Admission and Anticipated Discharge Date Admission Date: August 31, 2023 Subjective 73-year-old female postop day 1 from right total hip placement. She is doing pretty well. Had a pretty good night. Pains controlled. She has got up and walked around in the hallway and did okay. Waiting for therapy. No chest pain or shortness of breath. Not feeling dizzy or lightheaded. Physical Exam Physical Exam: Physical examination of the right leg reveals patient lying in bed looks quite comfortable. Dressings clean dry and intact. Thigh is soft and supple. No drainage. She can dorsiflex and plantarflex her foot appropriately. She is neurologically intact. Hip is located. Respiratory: normal respiratory effort, lungs clear to auscultation Cardiovascular: RRR, no murmur, no edema Gastrointestinal (Abdomen): normal bowel sounds, soft, nontender, no hepatosplenomegaly Results & Data Vital Signs (Past 12 Hours) Vital Signs Temp Pulse Pulse Resp BP Pulse Ox O2 Del Method 09/01/23 07:48 36.5 C 85 20 116/64 97 Room Air 09/01/23 04:34 37 C 86 19 121/67 96 Room Air 09/01/23 00:32 36.8 C 90 18 121/68 94 Room Air Laboratory Results Hemoglobin 10.6. Hematocrit 30.6. Electrolytes are stable. PG Care Time/CCT Total # of Minutes Spent Total Time Spent with Patient: Total time spent is greater than 50% in coordination of care (as documented) at patient's floor/unit and/or counseling patient: Coding Level of Care Code 67824 Post Operative Follow-Up Diagnoses Status post right hip replacement Z96.641
[2023-09-01] MEDS ORDERED: CEROVITE ADV FORMULA TAB PO SCH (11:30)
--- NOTE | 2023-09-01 11:36 | Surgery Progress Note ---
Date of Service September 01, 2023 Assessment & Plan (1) Status post right hip replacement: Plan: 73-year-old female postop day 1 from right hip replacement doing quite well. Pain is controlled. She is neurologically intact. Hips located. She is hoping to go home. Plan: 1. DVT prophylaxis including thigh-high teds, SCDs, aspirin twice a day. 2. PT/OT. Weight-bear as tolerated. Right total hip protocol. 3. Pain control doing okay with current pain regimen. 4 disposition plan to discharge home after therapy today. I will make sure she is ambulating and getting up and down some steps as safely before discharge. Admission and Anticipated Discharge Date Admission Date: August 31, 2023 Subjective 73-year-old female postop day 1 from a right hip replacement. She is doing quite well. She did get up and walk around last evening. Pain is controlled. No chest pain or shortness of breath. Not feeling dizzy or lightheaded. She is hoping to go home today. Physical Exam Physical Exam: Physical examination of the right hip reveals the patient lying bed looks comfortable. The dressing is clean dry and intact. Leg lengths are equal. Thigh is soft and supple. She can dorsiflex and plantarflex her foot appropriately. Respiratory: normal respiratory effort, lungs clear to auscultation Cardiovascular: RRR, no murmur, no edema Gastrointestinal (Abdomen): normal bowel sounds, soft, nontender, no hepatosplenomegaly Results & Data Vital Signs (Past 12 Hours) Vital Signs Temp Pulse Pulse Resp BP Pulse Ox O2 Del Method 09/01/23 10:20 36.5 C 85 86 20 116/64 97 09/01/23 07:48 36.5 C 85 20 116/64 97 Room Air 09/01/23 04:34 37 C 86 19 121/67 96 Room Air 09/01/23 00:32 36.8 C 90 18 121/68 94 Room Air Laboratory Results Hemoglobin is 10.6. Hematocrit is 30.8. Electrolytes are stable. PG Care Time/CCT Total # of Minutes Spent Total Time Spent with Patient: Total time spent is greater than 50% in coordination of care (as documented) at patient's floor/unit and/or counseling patient: Coding Level of Care Code 42421 Post Operative Follow-Up Diagnoses Status post right hip replacement Z96.641
[2023-09-02] MEDS ORDERED: PANTOprazole 40 MG TAB PO SCH (09:00)
--- NOTE | 2023-09-02 12:03 | Discharge Summary ---
Date of Service September 02, 2023 Discharge Data Procedures Performed Operation Date: 08/31/23 07:00 Actual Procedures p Right Total Hip Arthroplasty(Right) - Trace Fair MD Hospital Course (1) Status post right hip replacement: This is a 73 year old patient admitted on 08/31/23 and underwent total hip arthroplasty. She tolerated the procedure well and there were no complications. Transferred to the PACU post op and later to the orthopedic floor for further care. She was given ancef for antibiotic prophylaxis. She was also given DANA stockings, SCDs, and aspirin for DVT prophylaxis. Hemoglobin, hematocrit, and vital signs were monitored during her hospital stay and remained stable. Did not require any blood transfusions. There were no complications during her hospital stay. By post op day #1 the patient was tolerating a regular diet, pain was reasonably controlled with oral pain medicine, and she was participating in physical therapy. On post op day #1 the patient was discharged home and set up with home health care. She was given printed discharge instructions including prescriptions for extra strength tylenol, aspirin, ketorolac, zofran, senokot, and tramadol. Continue hip precautions. Continue physical therapy, weight bearing as tolerated. Continue DANA stockings. Follow up approximately 2 weeks post op or sooner if there are problems or concerns. Coding Level of Care Code None Diagnoses Status post right hip replacement Z96.641
== END 2023-09-01 11:09 | disposition home health service (06) ==
LOC: ASU 05:02 → PACUINP 05:02 → 3W 16:31